=== PATIENT | female | born 1950 | race Caucasian/White ===

== ENCOUNTER 2018-12-24 17:50 | Emergency (ER) | payer OTHER ==
[2018-12-24 19:25] LABS: Absolute Lymphocytes (CBC) 0.6 K/uL (0.7-4.9); Basophils % 0.3 % (0-1.3); Lymphocytes % 2.9 % (15.3-44.8); MPV 7.7 fL (7.6-11.3); RBC Red Blood Cell Count 4.12 M/uL (3.86-4.86)
[2018-12-24 19:33] LABS: Albumin 2.2 g/dL (3.4-5.0); Bilirubin Total 1.6 mg/dL (0.2-1.0); Potassium 4.9 mmol/L (3.5-5.1); Protein, Total 6.7 g/dL (6.4-8.2)
[2018-12-24] MEDS ORDERED: ONDANSETRON 4 MG/2 ML VIAL ONE ×2 (19:37→20:59)
[2018-12-24] MEDS ORDERED: NA CHLORIDE 0.9% 500 ML ONE (19:37)
[2018-12-24] MEDS ORDERED: NA CHLORIDE 0.9% 1,000 ML ONE (19:37)
[2018-12-24] MEDS ORDERED: FENTANYL CITR 100 MCG/2 ML ONE (19:37)
[2018-12-24 20:02] LABS: Blood Morphology Comment NOT SEEN (NOT SEEN); Platelet Estimate ADEQ
--- NOTE | 2018-12-24 20:24 | RAD REPORT ---
EXAM DESCRIPTION: CT - Abdomen Pelvis Wo Contrast - 12/24/2018 7:46 pm CLINICAL HISTORY: Abdominal pain, left lower quadrant pain, diarrhea, patient pending on biopsy COMPARISON: CT chest December 10 TECHNIQUE: Axial [address] imaging of the abdomen and pelvis was performed without IV contrast. No IV contrast was given because of allergy, abnormal renal function, patient refusal or physician re quest. No oral contrast was given. All CT scans are performed using dose optimization technique as appropriate and may include automated exposure control or mA/KV adjustment according to patient size. FINDINGS: No suspicious findings in the lung bases. Liver is abnormal. There are multiple rounded mass lesions scattered throughout the liver largest vinay suring 5 cm in diameter. Multiple metastatic liver lesions is the most likely etiology. Spleen and pancreas show no suspicious findings. Gallbladder and biliary tree are also without suspic ious finding. No hydronephrosis or suspicious renal mass. No significant adrenal finding. Isodense renal masses an d pyelonephritis cannot be excluded in the absence of IV contrast. Urinary bladder is grossly abnorma l. Bladder and pelvic floor assessment is substantially limited due to the spray artifact from bilate ral hip prosthesis. No gastric dilatation or gastric wall thickening. No dilated small bowel loops. No dilation of the co maurilio. Circumferential wall thickening is present throughout the colon. There is a minimal amount of st randing in the adjacent fat. There appears to be a sigmoid anastomotic site present. : Diameter proxi mal to the anastomosis is prominent. Distal to the anastomosis there is diminished diameter. A strict ure at this site is suspected. No discrete mass at this site. No abnormal adjacent lymphadenopathy. T here is contrast material in the colon possibly remnant from the Gastrografin enema examination perfo rmed November 28. No hernia, mass or bulky lymphadenopathy. No suspicious bony findings. IMPRESSION: Grossly abnormal liver with multiple rounded mass lesions almost certainly metastatic di sease. Circumferential wall thickening of a nondilated colon suspicious for a mild colitis. There appears to be a stricture at the distal sigmoid colon with evidence for prior anastomosis at the transition sit e. Full assessment is limited is the absence of IV contrast.
--- NOTE | 2018-12-24 21:09 | EDPHYS ---
Physician Documentation [facility] Name: Jacquelyn Dye Age: 68 yrs Sex: Female : 1950 Arrival Date: 12/24/2018 Time: 17:51 Bed 15 Private MD: out of town, doctor ED Physician Carloz Benítez HPI: 12/24 18:55 This 68 yrs old Female presents to ER via Wheelchair with complaints of cp Weakness, Nausea/Vomiting/Diarrhea. 18:55 The patient presents to the emergency department with nausea, with "dry heaves", cp vomiting, that is continuous, diarrhea, that is continuous. 18:55 Onset: The symptoms/episode began/occurred last night. Associated signs and symptoms: cp Pertinent positives: abdominal pain, diarrhea, nausea, vomiting, Pertinent negatives: constipation, fever, GI bleeding. Severity of symptoms: in the emergency department the symptoms are unchanged despite home interventions. Historical: - Allergies: 18:29 morphine; iw 18:29 codeine; iw - Home Meds: 18:29 tramadol 50 mg Oral tab 1 tab every 4 hours [Active]; albuterol sulfate 2.5 mg /3 mL iw (0.083 %) Inhl nebu 3 mL 4 times per day [Active]; promethazine 25 mg Oral tab 1 tab every 6 hours [Active]; Ventolin HFA 90 mcg/actuation Nebulizer HFAA 2 puffs every 4-6 hours [Active]; ondansetron 4 mg oral TbDL every 8 hours [Active]; metoprolol tartrate 200 mg Oral tab once daily [Active]; Symbicort 160-4.5 mcg/actuation inhalation HFAA 2 puffs 2 times per day [Active]; - PMHx: 18:29 Hypertension; COPD; iw - PSHx: 18:29 brain aneurysm repair; nose; iw - Immunization history:: Adult Immunizations not up to date. - Social history:: Smoking status: Patient uses tobacco products, denies chronic smoking, but will smoke occasionally. - Ebola Screening: : Patient negative for fever greater than or equal to 101.5 degrees Fahrenheit, and additional compatible Ebola Virus Disease symptoms Patient denies exposure to infectious person Patient denies travel to an Ebola-affected area in the 21 days before illness onset No symptoms or risks identified at this time. ROS: 19:05 Constitutional: Positive for poor PO intake, Negative for body aches, chills, fever. cp 19:05 Eyes: Negative for injury, pain, redness, and discharge. cp 19:05 ENT: Negative for drainage from ear(s), ear pain, sore throat, difficulty swallowing, difficulty handling secretions. 19:05 Cardiovascular: Negative for chest pain, edema, palpitations. 19:05 Respiratory: Negative for cough, shortness of breath, wheezing. 19:05 Abdomen/GI: Positive for abdominal pain, nausea, vomiting, and diarrhea, black/tarry stool, Negative for constipation, hematemesis, rectal bleeding. 19:05 Skin: Negative for rash. 19:05 Neuro: Positive for general weakness, Negative for altered mental status, dizziness, headache. 19:05 All other systems are negative. Exam: 19:10 Constitutional: The patient appears in no acute distress, alert, awake, cp non-diaphoretic, non-toxic, well developed, well nourished, uncomfortable. 19:10 Head/Face: Normocephalic, atraumatic. Eyes: Pupils equal round and reactive to light, cp extra-ocular motions intact. Lids and lashes normal. Conjunctiva and sclera are non-icteric and not injected. Cornea within normal limits. Periorbital areas with no swelling, redness, or edema. ENT: Nares patent. No nasal discharge, no septal abnormalities noted. Tympanic membranes are normal and external auditory canals are clear. Oropharynx with no redness, swelling, or masses, exudates, or evidence of obstruction, uvula midline. Mucous membranes moist. 19:10 Chest/axilla: Inspection: normal, Palpation: is normal, no crepitus, no tenderness. 19:10 Cardiovascular: Rate: normal, Rhythm: regular, Edema: is not appreciated, JVD: is not appreciated. 19:10 Respiratory: the patient does not display signs of respiratory distress, Respirations: normal, no use of accessory muscles, no retractions, no splinting, no tachypnea, labored breathing, is not present, Breath sounds: are clear throughout, no decreased breath sounds, no stridor, no wheezing. 19:10 Abdomen/GI: Inspection: distension, that is mild, Bowel sounds: active, all quadrants, Palpation: abdomen is soft and non-tender, in all quadrants, rebound tenderness, is not appreciated, voluntary guarding, is elicited in all quadrants, involuntary guarding, is not appreciated. 19:10 Back: CVA tenderness, is absent. 19:10 Skin: no rash present. 19:10 Neuro: Orientation: to person, place \\T\\ time. Mentation: is normal, Motor: moves all fours, general weakness w/o focal deficits, Sensation: no obvious gross deficits. Vital Signs: 18:29 BP 163 / 84; Pulse 79; Resp 16; Temp 97.8; Pulse Ox 95% on R/A; Weight 58.97 kg; Height iw 5 ft. 4 in. (162.56 cm); Pain 7/10; 20:05 BP 166 / 79; Pulse 79; Resp 22; Pulse Ox 97% on R/A; Pain 4/10; ch 21:30 BP 159 / 79; Pulse 81; Resp 16; Temp 99; Pulse Ox 95% on R/A; Pain 6/10; ch 23:00 BP 154 / 73; Pulse 81; Resp 22; Temp 98.8(O); Pulse Ox 96% on R/A; Pain 4/10; ch 23:50 BP 160 / 78; Pulse 78; Resp 24; Temp 98.3(O); Pulse Ox 99% ; Pain 4/10; ar5 12/25 02:21 BP 174 / 88; Pulse 76; Resp 15; Temp 98.8; Pulse Ox 99% on R/A; Pain 4/10; ch 12/24 18:29 Body Mass Index 22.31 (58.97 kg, 162.56 cm) iw MDM: 12/24 18:18 Patient medically screened. [facility] 21:00 Data reviewed: vital signs, nurses notes, lab test result(s), radiologic studies, CT cp scan, I have discussed the patient's presentation/case with the attending Emergency Department Physician;. 21:05 Physician consultation: William Maldonado DO was called at 21:06, was contacted at 21:06, regarding admission, to the medical/surgical unit. patient's condition, and will see patient in ED, shortly. 22:00 Physician consultation: William Maldonado DO in the emergency department to see patient at 21:15, consulted general surgery, DR Merino, requests transfer to another facility where colorectal surgery is available. 12/24 18:48 Order name: Basic Metabolic Panel; Complete Time: 19:36 cp 12/24 18:48 Order name: CBC with Diff; Complete Time: 20:36 cp 12/24 20:36 Interpretation: Normal except: WBC 20.9; HGB 11.2; HCT 34.0; PLT 415; CHARLEE% 94.0; LYM% cp 2.9; MN% 2.6; NEUT A 19.6; LYMA 0.6. 12/24 18:48 Order name: Creatinine for Radiology; Complete Time: 19:36 cp 12/24 18:48 Order name: Hepatic Function; Complete Time: 19:36 cp 12/24 18:48 Order name: Lipase; Complete Time: 19:36 cp 12/24 18:48 Order name: Urine Microscopic Only; Complete Time: 00:05 12/24 18:53 Order name: Magnesium; Complete Time: 20:40 12/24 19:31 Order name: Manual Differential; Complete Time: 20:36 EDMS 12/24 19:39 Order name: Abdomen ; Complete Time: 20:36 EDMS 12/24 20:40 Order name: Procalcitonin; Complete Time: 22:07 12/24 22:07 Interpretation: Abnormal: Procalcitonin 3.53. cp 12/24 20:40 Order name: Lactate; Complete Time: 22:07 12/24 20:40 Order name: Blood Culture Adult (2) 12/24 23:06 Order name: Urine Dipstick--Ancillary (enter results); Complete Time: 00:05 2 12/24 18:48 Order name: IV Saline Lock; Complete Time: 19:13 12/24 18:48 Order name: Labs collected and sent; Complete Time: 19:13 12/24 18:48 Order name: Urine Dipstick-Ancillary (obtain specimen); Complete Time: 23:29 cp Administered Medications: 19:40 Drug: fentaNYL (PF) 25 mcg Route: IVP; Site: left wrist; ch 19:40 Drug: NS 0.9% 1000 ml Route: IV; Rate: 100 ml/hr; Site: left wrist; ch 22:12 Follow up: IV Status: Infusion continued upon transfer ch 19:40 Drug: Zofran 4 mg Route: IVP; Site: left wrist; ch 22:05 Follow up: Response: No adverse reaction ch 20:03 Drug: NS 0.9% 500 ml Route: IV; Rate: bolus; Site: left wrist; 22:05 Follow up: IV Status: Completed infusion; IV Intake: 500ml 20:30 Drug: Zofran 4 mg Route: IVP; Site: left wrist; 22:05 Follow up: Response: No adverse reaction; No change in condition ch 21:30 Drug: Phenergan 25 mg {Note: placedin NS 100mL bag and run in at rate of 200mL per ch hour. pt tolerated well.} Route: IVP; Infused Over: 30 mins; Site: left [facility]; 22:12 Follow up: Response: No adverse reaction; Marked relief of symptoms ch 22:04 Drug: metroNIDAZOLE 500 mg Volume: 100 ml; Route: IVPB; Infused Over: 30 mins; Site: [facility]; 23:00 Follow up: IV Status: Completed infusion; IV Intake: 100ml 23:10 Drug: Cipro 200 mg Volume: 100 ml; Route: IVPB; Infused Over: 60 mins; Site: left [facility]; 12/25 00:00 Follow up: IV Status: Completed infusion; IV Intake: 100ml 12/24 23:56 Drug: Zofran 4 mg Route: IVP; Site: left [facility]; 12/25 02:24 Follow up: Response: No adverse reaction Disposition: 06:20 Co-signature as Attending Physician, Carloz Benítez MD I agree with the assessment and [facility] plan of care. Disposition: 12/25/18 00:18 Transfer ordered to Other Acute Care Facility. Diagnosis are Colitis, Colon stricture, Nausea and vomiting. - Reason for transfer: Higher level of care. - Accepting physician is DR Zamarripa. - Condition is Stable. - Problem is new. - Symptoms have improved. Signatures: Dispatcher [employer] EDMS Katie Mccoy RN RN ch Anderson, Corey, MD MD cha Williams, Irene, RN RN iw Krenek, Amber, RN RN ak1 Carloz Fang PA PA cp Corrections: (The following items were deleted from the chart) 12/24 19:39 18:54 Abdomen Pelvis W Con+CT.RAD.BRZ ordered. EDMS EDMS 20:36 20:36 Normal except: WBC 20.9; HGB 11.2; HCT 34.0; PLT 415; CHARLEE% 94.0; LYM% 2.9; MN% cp 2.6; NEUT A 19.6. cp 21:20 21:07 Hospitalization Ordered by William Maldonado DO for Inpatient Admission. Preliminary ak1 diagnosis is Infectious gastroenteritis and colitis, unspecified. Bed requested for Telemetry/MedSurg (Inpatient). Status is Inpatient Admission. Condition is Stable. Problem is new. Symptoms have improved. UTI on Admission? No. cp 22:02 21:20 12/24/2018 21:07 Hospitalization Ordered by WilliamFernando OVALLES for Inpatient cp Admission. Preliminary diagnosis is Infectious gastroenteritis and colitis, unspecified. Bed requested for Telemetry/MedSurg (Inpatient). Status is Inpatient Admission. Condition is Stable. Problem is new. Symptoms have improved. UTI on Admission? No. ak1 22:23 22:02 Hospitalization Ordered by for Inpatient Admission. Preliminary diagnosis is cp Infectious gastroenteritis and colitis, unspecified. Bed requested for Telemetry/MedSurg (Inpatient). Status is Inpatient Admission. Condition is Stable. Problem is new. Symptoms have improved. UTI on Admission? No. ak1 12/25 00:18 00:18 12/25/2018 00:18 Transfer ordered to Other Acute Care Facility. Diagnosis is cp Colitis. Reason for transfer: Higher level of care. Accepting physician is DR Zamarripa. Condition is Stable. Problem is new. Symptoms have improved. cp 02:26 00:18 12/25/2018 00:18 Transfer ordered to Other Acute Care Facility. Diagnosis is ch Colitis; Colon stricture; Nausea and vomiting. Reason for transfer: Higher level of care. Accepting physician is DR Zamarripa. Condition is Stable. Problem is new. Symptoms have improved. cp
--- NOTE | 2018-12-24 21:09 | ER ---
Nurse's Notes [facility] Name: Jacquelyn Dye Age: 68 yrs Sex: Female : 1950 Arrival Date: 12/24/2018 Time: 17:51 Bed 15 Private MD: out of town, doctor Diagnosis: Colitis;Colon stricture;Nausea and vomiting Presentation: 12/24 18:18 Presenting complaint: Patient states: vomiting, diarrhea, LLQ pain since last night, is iw due to have lung biopsy tomorrow for possible lung CA, has been losing weight over past month. Transition of care: patient was not received from another setting of care. Onset of symptoms was December 24, 2018. Risk Assessment: Do you want to hurt yourself or someone else? Patient reports no desire to harm self or others. Initial Sepsis Screen: Does the patient meet any 2 criteria? No. Patient's initial sepsis screen is negative. Does the patient have a suspected source of infection? No. Patient's initial sepsis screen is negative. Care prior to arrival: None. 18:18 Method Of Arrival: Wheelchair iw 18:18 Acuity: LALO 3 iw Historical: - Allergies: 18:29 morphine; iw 18:29 codeine; iw - Home Meds: 18:29 tramadol 50 mg Oral tab 1 tab every 4 hours [Active]; albuterol sulfate 2.5 mg /3 mL iw (0.083 %) Inhl nebu 3 mL 4 times per day [Active]; promethazine 25 mg Oral tab 1 tab every 6 hours [Active]; Ventolin HFA 90 mcg/actuation Nebulizer HFAA 2 puffs every 4-6 hours [Active]; ondansetron 4 mg oral TbDL every 8 hours [Active]; metoprolol tartrate 200 mg Oral tab once daily [Active]; Symbicort 160-4.5 mcg/actuation inhalation HFAA 2 puffs 2 times per day [Active]; - PMHx: 18:29 Hypertension; COPD; iw - PSHx: 18:29 brain aneurysm repair; nose; iw - Immunization history:: Adult Immunizations not up to date. - Social history:: Smoking status: Patient uses tobacco products, denies chronic smoking, but will smoke occasionally. - Ebola Screening: : Patient negative for fever greater than or equal to 101.5 degrees Fahrenheit, and additional compatible Ebola Virus Disease symptoms Patient denies exposure to infectious person Patient denies travel to an Ebola-affected area in the 21 days before illness onset No symptoms or risks identified at this time. Screenin:05 Abuse screen: Denies threats or abuse. Denies injuries from another. Nutritional ch screening: No deficits noted. Tuberculosis screening: No symptoms or risk factors identified. Fall Risk None identified. Assessment: 19:30 General: Appears in no apparent distress. uncomfortable, Behavior is calm, cooperative, ch appropriate for age. Pain: Complains of pain in left lower quadrant Pain currently is 7 out of 10 on a pain scale. 19:30 Reassessment: pt medicated for nausea. Neuro: No deficits noted. Respiratory: Airway is ch patent Respiratory effort is even, unlabored, Breath sounds are coarse bilaterally. Breath sounds are diminished bilaterally. Breath sounds with wheezes bilaterally. 19:30 Cardiovascular: Heart tones S1 S2 present. GI: Abdomen is round non-distended, Bowel ch sounds present X 4 quads. Abd is soft X 4 quads Abdomen is tender to palpation in left upper quadrant and left lower quadrant Reports lower abdominal pain, upper abdominal pain, diarrhea, nausea, vomiting. : No signs and/or symptoms were reported regarding the genitourinary system. Derm: Skin is intact, Skin is pale. Musculoskeletal: Circulation, motion, and sensation intact. 20:57 Reassessment: lab contacted to perform blood cultures on pt. 21:15 Reassessment: Patient appears in no apparent distress at this time. Patient and/or ch family updated on plan of care and expected duration. Pain level reassessed. pt vomiting, new order obtained. 22:12 Reassessment: pt states she feels better. pt to be transferred. pt verb understanding. ch antibiotics started after blood cultures obtained. 23:00 Reassessment: Patient appears in no apparent distress at this time. Patient and/or ch family updated on plan of care and expected duration. Pain level reassessed. Patient is alert, oriented x 3, equal unlabored respirations, skin warm/dry/pink. pt attempts to urinate on bed fleming, states she cannot. pt straight cathed for sample. 23:50 Reassessment: Patient appears in no apparent distress at this time. Patient and/or ch family updated on plan of care and expected duration. Pain level reassessed. Patient denies pain at this time. 12/25 00:27 Reassessment: Patient appears in no apparent distress at this time. Patient and/or ch family updated on plan of care and expected duration. Pain level reassessed. Patient is alert, oriented x 3, equal unlabored respirations, skin warm/dry/pink. attempting to call report now. 01:19 Reassessment: Patient appears in no apparent distress at this time. Patient and/or ch family updated on plan of care and expected duration. Pain level reassessed. Patient is alert, oriented x 3, equal unlabored respirations, skin warm/dry/pink. awaiting ems arrival. 02:21 Reassessment: Patient appears in no apparent distress at this time. Patient and/or ch family updated on plan of care and expected duration. Pain level reassessed. report given to Bam with EMS. Vital Signs: 12/24 18:29 BP 163 / 84; Pulse 79; Resp 16; Temp 97.8; Pulse Ox 95% on R/A; Weight 58.97 kg; Height iw 5 ft. 4 in. (162.56 cm); Pain 7/10; 20:05 BP 166 / 79; Pulse 79; Resp 22; Pulse Ox 97% on R/A; Pain 4/10; ch 21:30 BP 159 / 79; Pulse 81; Resp 16; Temp 99; Pulse Ox 95% on R/A; Pain 6/10; ch 23:00 BP 154 / 73; Pulse 81; Resp 22; Temp 98.8(O); Pulse Ox 96% on R/A; Pain 4/10; ch 23:50 BP 160 / 78; Pulse 78; Resp 24; Temp 98.3(O); Pulse Ox 99% ; Pain 4/10; ar5 12/25 02:21 BP 174 / 88; Pulse 76; Resp 15; Temp 98.8; Pulse Ox 99% on R/A; Pain 4/10; ch 12/24 18:29 Body Mass Index 22.31 (58.97 kg, 162.56 cm) ED Course: 12/24 17:51 Patient arrived in ED. dl4 17:51 out of town, doctor is Private Physician. dl4 18:14 Danae Gil, RN is Primary Nurse. rb1 18:15 Carloz Fang PA is PHCP. cp 18:15 Carloz Benítez MD is Attending Physician. cp 18:21 Triage completed. iw 18:29 Arm band placed on. iw 18:55 Radiology exam delayed due to lab results not completed at this time. (BUN/Creatinine). vm2 19:12 Initial lab(s) drawn, by mo, sent to lab. Inserted saline lock: 22 gauge in right 5 antecubital area, using aseptic technique. Blood collected. 19:12 Magnesium Sent. 5 19:13 Basic Metabolic Panel Sent. 5 19:13 CBC with Diff Sent. 5 19:13 Creatinine for Radiology Sent. 5 19:13 Hepatic Function Sent. 5 19:13 Lipase Sent. [facility] 19:14 Primary Nurse role handed off by Danae Gil, RN 19:14 Katie Mccoy, RN is Primary Nurse. 19:14 Patient has correct armband on for positive identification. Bed in low position. Call [facility] light in reach. Side rails up X2. Adult w/ patient. Warm blanket given. Pulse ox on. NIBP on. 19:15 Radiology exam delayed due to lab results not completed at this time. (BUN/Creatinine). vm2 19:26 Radiology exam delayed due to lab results not completed at this time. (BUN/Creatinine). nc 19:30 Missed attempt(s): 22 gauge in left forearm. Bleeding controlled, band aid applied, ch catheter tip intact. 19:31 Notified Nurse Practitioner and/or Physician [employer] of a critical lab result(s), wbc jb4 20.9. 19:34 No provider procedures requiring assistance completed. IV discontinued, intact, ch bleeding controlled, Pressure dressing applied, pt 22G in L AC will not flush, site is burised. IV DC. 19:40 Inserted saline lock: 24 gauge in left wrist, using aseptic technique. ch 19:46 CT completed. Patient tolerated procedure well. Patient moved to DE. Patient moved back nc from CT. 19:48 Abdomen In Process Unspecified. EDMS 21:06 William Maldonado DO is Hospitalizing Provider. cp 23:00 Straight cath inserted, using sterile technique, 16 Fr. Specimen obtained. Returned brown urine, 250mL. provider notified, no new orders.. Patient tolerated well. 12/25 01:00 No apparent distress. Resting quietly. ch 01:00 Inserted saline lock: 22 gauge in right forearm, using aseptic technique. ch 02:21 Patient transferred, IV remains in place. ch Administered Medications: 12/24 19:40 Drug: fentaNYL (PF) 25 mcg Route: IVP; Site: left wrist; ch 19:40 Drug: NS 0.9% 1000 ml Route: IV; Rate: 100 ml/hr; Site: left wrist; ch 22:12 Follow up: IV Status: Infusion continued upon transfer ch 19:40 Drug: Zofran 4 mg Route: IVP; Site: left wrist; ch 22:05 Follow up: Response: No adverse reaction ch 20:03 Drug: NS 0.9% 500 ml Route: IV; Rate: bolus; Site: left wrist; ch 22:05 Follow up: IV Status: Completed infusion; IV Intake: 500ml ch 20:30 Drug: Zofran 4 mg Route: IVP; Site: left wrist; ch 22:05 Follow up: Response: No adverse reaction; No change in condition ch 21:30 Drug: Phenergan 25 mg {Note: placedin NS 100mL bag and run in at rate of 200mL per ch hour. pt tolerated well.} Route: IVP; Infused Over: 30 mins; Site: left wrist; 22:12 Follow up: Response: No adverse reaction; Marked relief of symptoms ch 22:04 Drug: metroNIDAZOLE 500 mg Volume: 100 ml; Route: IVPB; Infused Over: 30 mins; Site: left wrist; 23:00 Follow up: IV Status: Completed infusion; IV Intake: 100ml ch 23:10 Drug: Cipro 200 mg Volume: 100 ml; Route: IVPB; Infused Over: 60 mins; Site: left wrist; 12/25 00:00 Follow up: IV Status: Completed infusion; IV Intake: 100ml 12/24 23:56 Drug: Zofran 4 mg Route: IVP; Site: left wrist; 12/25 02:24 Follow up: Response: No adverse reaction ch Intake: 12/24 22:05 IV: 500ml; Total: 500ml. 23:00 IV: 100ml; Total: 600ml. ch 12/25 00:00 IV: 100ml; Total: 700ml. ch Outcome: 12/24 21:07 Decision to Hospitalize by Provider. cp 22:02 Decision to Hospitalize by Provider. ak1 12/25 00:18 ER care complete, transfer ordered by . cp 01:00 Transferred by ground EMS to [facility], Transfer form completed. X-rays sent w/ patient. 01:00 Condition: stable 01:00 Instructed on the need for transfer. 02:26 Patient left the ED. Signatures: Dispatcher [employer] EDMS Katie Mccoy, RN RN Fernanda Bustillo RN Marina Orr RN RN ak1 Carloz Fang PA PA cp Barber, Rebecca, RN RN [facility] Eliezer Staton RN RN jbJudd Bryant Maria Ada Lao David dl4 Izzy Hui ar5 Corrections: (The following items were deleted from the chart) 12/24 23:53 23:50 BP 160 / 78; Pulse 78bpm; Resp 24bpm; Pulse Ox 99%; Pain 4/10; ch ar5
[2018-12-24] MEDS ORDERED: PROMETHAZINE 25 MG/ML VIAL ONE (21:31)
[2018-12-24] MEDS ORDERED: CIPROFLOXACIN 400mg IV 400 MG/200 ML BAG IV ONE (21:31)
[2018-12-24] MEDS ORDERED: NA CHLORIDE 0.9% 100 ML IV ONE (21:31)
[2018-12-24] MEDS ORDERED: METRONIDAZOLE 500mg IVPB 500 MG/100 ML BAG IV ONE (21:32)
--- NOTE | 2018-12-24 23:04 | P.CNS ---
Date of Consult: 12/24/18 Reason for Consult: ER Consult for Transfer Requesting Physician: Carloz Fang Primary Care Provider: Dr. Gann(Concepcion); GI-Dr. Jacob, Pulm-Dr. Mae Chief Complaint: Diarrhea, abdominal pain History of Present Illness: 68-year-old female presented to the emergency room with diarrhea and abdominal pain. Patient has been having diarrhea, abdominal pain over the past several weeks. It has been getting worse over the last several days. It is associated with nausea and vomiting. She denies any fever. Patient is currently being worked up by GI and pulmonology as an outpatient. Recent CT scan done as an outpatient showed multiple abnormal lesions to the lung, liver, and spine suspicious for metastatic disease. Patient with prior history of colon resection in 2012 at [facility] [place]. She does not recall whether this was related to cancer. She does not believe it was. Patient had colonoscopy done 2 weeks ago. Unfortunately this could not be further evaluated due to stricture. She was to have pulmonary bronchoscopy tomorrow for evaluation of liver mets. In the ER patient was evaluated. Patient found to have elevated white count of 20.9, hemoglobin 11.2. Sodium 130, potassium 4.9. BUN of 29, creatinine 2.3 with a GFR of 21. Glucose 106. CT scan revealed grossly abnormal liver with multiple lesions likely metastatic disease. Circumferential wall thickening of the nondilated colon suspicious for colitis. There was a stricture at the distal sigmoid colon with prior evidence of anastomosis. I was consulted to further evaluate patient for possible transfer or admission. 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 She has 3 children - Family History Mother Medical History: Cancer (Aunt with lung cancer) - Social History Smoking Status: Light Tobacco smoker (1-9 cigarettes/day) Counseled patient to stop smoking for: less than 10 minutes Smoking therapy provided: Yes Patient receptive to therapy: Yes Alcohol use: No CD- Drugs: No Caffeine use: Yes Place of Residence: Home Review of Systems General: Weakness, As per HPI Eyes: Unremarkable ENT: Unremarkable Respiratory: Unremarkable Cardiovascular: Unremarkable Gastrointestinal: Nausea, Vomiting, Abdominal Pain, Diarrhea, As per HPI Genitourinary: Unremarkable Musculoskeletal: Unremarkable Integumentary: Unremarkable Neurological: Unremarkable Lymphatics: Unremarkable Physical Examination General: Alert, In no apparent distress, Oriented x3, Cooperative HEENT: Atraumatic, Normocephalic, PERRLA, Other (Dry mucous membranes) Neck: Supple, No Thyromegaly Respiratory: Clear to auscultation bilaterally, Normal air movement Cardiovascular: Normal pulses, Regular rate/rhythm Gastrointestinal: Hypoactive, Soft and benign, Non-distended, No masses, No rebound, No guarding, Tenderness (Pain throughout) Musculoskeletal: No erythema, No tenderness, No warmth Integumentary: No erythema, No warmth, No cyanosis Neurological: Normal speech, Normal strength at 5/5 x4 extr, Normal tone, Normal affect Laboratory Data (last 24 hrs) 12/24/18 19:00: Magnesium 2.4 12/24/18 19:00: Creatinine 2.30 H 12/24/18 19:00: WBC 20.9 H*, Hgb 11.2 L, Hct 34.0 L, Plt Count 415 H 12/24/18 19:00: Sodium 130 L, Potassium 4.9, BUN 29 H, Creatinine 2.35 H, Glucose 106, Total Bilirubin 1.6 H, AST 15, ALT 13, Alkaline Phosphatase 136 H, Lipase 18 L Conclusions/Impression: Impression: Abdominal pain, diarrhea, nausea and vomiting secondary to fleming colitis complicated with stricture at the anastomosis site from prior colon resection to the sigmoid region suspicious for stage IV colon cancer with metastasis to the lung/liver/bone Acute renal failure likely dehydration COPD Hypertension Tobacco abuse Plan: Case discussed at length with surgery. Due to her history and recent CT findings, patient likely with stage IV colon cancer with metastasis to the lungs /liver and bone. Pancolitis with stricture to the anastomosis site noted. Surgery recommends transfer from the ER to higher level of care for colorectal surgery evaluation and treatment. Patient will require IV antibiotic therapy, fluids and further evaluation by colorectal surgery. Case discussed at length with ER provider. Transfer to higher level of care center will be initiated. Time Spent Managing Pts care (In Minutes): 55
[2018-12-24 23:20] LABS: Urine Amorphous Sediment 3+ /HPF (NONE SEEN); Urine Bacteria <20 /HPF (<20); Urine Culture Reflex Order NOT NEEDED; Urine RBC NONE SEEN /HPF (NONE SEEN)
[2018-12-24 23:55] LABS: Urine Blood NEGATIVE (NEG); Urine Glucose TRACE (NEG); Urine Protein 2+ (NEG); Urine pH 5.5 (5.0-7.0)
[2018-12-25] MEDS ORDERED: ONDANSETRON 4 MG/2 ML VIAL ONE (00:10)
[2018-12-25] MEDS ORDERED: NA CHLORIDE 0.9% 1,000 ML ONE (01:39)
== END 2018-12-25 02:26 ==
LOC: ER 17:50
DX: K56.699 Other intestinal obstruction unspecified as to partial versus complete obstruction (principal); K52.9 Noninfective gastroenteritis and colitis, unspecified; I10 Essential (primary) hypertension; J44.9 Chronic obstructive pulmonary disease, unspecified; Z72.0 Tobacco use; Z88.5 Allergy status to narcotic agent
CPT/HCPCS: 87040 ×2; 85025; 80048; 36415; 83735; 87205; 80076; 83605; 83690; 84145; 74176; J2550; J3010; J7030 ×2; J2405 ×2; J0744; 51702; 81003; 81015; 96361; 96365; 96367; 96375; 99285